=== PATIENT | female | born 1955 | race Caucasian/White ===

== ENCOUNTER → 2016-09-13 | Outpatient (CLI) | payer OTHER, MEDICARE | END | disposition home or self-care (01) | LOC: PCVCCLINIC 11:59 | PROVIDERS: ATTEND Internal Medicine | DX: I10 Essential (primary) hypertension (principal); I48.0 Paroxysmal atrial fibrillation; E78.5 Hyperlipidemia, unspecified; I63.432 Cerebral infarction due to embolism of left posterior cerebral artery; Z86.718 Personal history of other venous thrombosis and embolism; Z79.899 Other long term (current) drug therapy; Z87.891 Personal history of nicotine dependence | CPT/HCPCS: 93005; G0463 ==

== ENCOUNTER → 2017-03-18 | Outpatient (CLI) | payer OTHER, MEDICARE | END | disposition home or self-care (01) | LOC: PCVCCLINIC 11:32 | PROVIDERS: ATTEND Internal Medicine | DX: I48.0 Paroxysmal atrial fibrillation (principal); R06.02 Shortness of breath; I63.432 Cerebral infarction due to embolism of left posterior cerebral artery; E78.5 Hyperlipidemia, unspecified; Z87.891 Personal history of nicotine dependence; Z79.899 Other long term (current) drug therapy | CPT/HCPCS: 80061; 93005; G0463 ==

== ENCOUNTER → 2017-09-19 | Outpatient (CLI) | payer OTHER, MEDICARE | END | disposition home or self-care (01) | LOC: PCVCCLINIC 14:11 | DX: I48.0 Paroxysmal atrial fibrillation (principal); I63.432 Cerebral infarction due to embolism of left posterior cerebral artery; E78.5 Hyperlipidemia, unspecified; I51.81 Takotsubo syndrome; F17.201 Nicotine dependence, unspecified, in remission; Z86.718 Personal history of other venous thrombosis and embolism; Z79.01 Long term (current) use of anticoagulants; Z88.8 Allergy status to other drugs, medicaments and biological substances | CPT/HCPCS: 93005; G0463 ==

== ENCOUNTER → 2018-04-17 | Outpatient (CLI) | payer MEDICARE ==
--- NOTE | 2018-04-17 12:04 | PCVCIMAG ---
APPROVED REPORT Study performed: 04/17/2018 10:17:33 EXAM: Comprehensive 2D, Doppler, and color-flow Echocardiogram Patient Location: Echo lab Room #: 2Status: routine BSA: 1.87 HR: 81 bpmBP: 162/100 mmHg Rhythm: NSR Other Information Study Quality: Good Risk Factors: Cardiac Risk Factors: HTN Indications Atrial Fibrillation Hypertension/HDD Hx DVT, CVA 2D Dimensions IVSd: 8.80 (7-11mm)LVOT Diam: 21.50 (18-24mm) LVDd: 55.38 mm PWd: 7.46 (7-11mm)Ascending Ao: 31.24 (22-36mm) LVDs: 42.95 (25-40mm) Left Atrium: 39.78 (27-40mm) Aortic Root: 19.96 mm LV Single Plane 4CH: 42.36 % LV Single Plane 2CH: 54.76 % Biplane EF: 50.0 % Volumes Left Atrial Volume (Systole) Single Plane 4CH: 76.13 mLSingle Plane 2CH: 77.04 mL Biplane LA Volume: 82.00 mLLA ESV Index: 44.00 mL/m2 Aortic Valve AoV Peak Prieto.: 1.51 m/s AO Peak Gr.: 9.12 mmHgLVOT Max P.44 mmHg LVOT Max V: 0.78 m/s AMANDA Vmax: 1.87 cm2 AI Vmax: 3.92 m/s AI [place]: 3.42 m/s2 AI PHT: 332.58 ms Mitral Valve E/A Ratio: 0.9 MV Decel. Time: 126.58 ms MV E Max Prieto.: 0.76 m/s MV A Prieto.: 0.82 m/s IVRT: 110.73 ms TDI E/Lateral E': 6.91E/Medial E': 8.44 Medial E' Prieto.: 0.09 m/s Lateral E' Prieto.: 0.11 m/s Pulmonary Valve PV Peak Prieto.: 0.92 m/sPV Peak Gr.: 3.41 mmHg Pulmonary Vein P Vein S: 0.65 m/sP Vein A: 0.23 m/s P Vein D: 0.50 m/sP Vein A Dur.: 76.1 msec P Vein S/D Ratio: 1.30 Tricuspid Valve TR Peak Prieto.: 2.54 m/s TR Peak Gr.: 25.81 mmHg TV Vmax: 0.57 m/sPA Pressure: 33.00 mmHg Left Ventricle The left ventricle is normal size. There is normal LV segmental wall motion. There is normal left ventricular wall thickness. Left ventricular systolic function is normal. The left ventricular ejection fraction is within the normal range. LVEF is 50%. The left ventricular diastolic function is normal. Right Ventricle The right ventricle is normal size. The right ventricular systolic function is normal. Atria Left atrium is dilated. The right atrium size is normal. Aortic Valve Aortic valve is trileaflet. The aortic valve is normal in structure and function. No aortic regurgitation is present. There is no aortic valvular stenosis. Mitral Valve The mitral valve is normal in structure. Mild-moderate insufficiency No evidence of mitral valve stenosis. Tricuspid Valve The tricuspid valve is normal in structure. Mild to moderate tricuspid regurgitation. Pulmonic Valve The pulmonary valve is normal in structure. There is no pulmonic valvular regurgitation. Great Vessels The aortic root is normal in size. The ascending aorta is normal in size. Aortic arch is not well visualized. IVC is normal in size and collapses >50% with inspiration. Pericardium There is no pericardial effusion. There is no pleural effusion. <Conclusion> Left ventricular systolic function is normal. There is normal LV segmental wall motion. LVEF 50%. Left atrium is dilated Aortic valve is trileaflet. No aortic regurgitation or stenosis The mitral valve is normal in structure. Mild-moderate insufficiency Pulmonary artery pressure of 30mmHg There is no pericardial effusion.
== END | disposition home or self-care (01) ==
LOC: PCVCIMAG 10:13
PROVIDERS: ATTEND Internal Medicine
DX: I48.0 Paroxysmal atrial fibrillation (principal); I63.432 Cerebral infarction due to embolism of left posterior cerebral artery; E78.5 Hyperlipidemia, unspecified; I51.81 Takotsubo syndrome; F17.201 Nicotine dependence, unspecified, in remission; J45.909 Unspecified asthma, uncomplicated; Z86.718 Personal history of other venous thrombosis and embolism; Z79.01 Long term (current) use of anticoagulants; Z79.899 Other long term (current) drug therapy
CPT/HCPCS: 36415; 80061; 93005; 93306; G0463

== ENCOUNTER → 2018-10-30 | Outpatient (CLI) | payer MEDICARE | END | disposition home or self-care (01) | LOC: PCVCCLINIC 10:00 | PROVIDERS: ATTEND Internal Medicine | DX: I48.0 Paroxysmal atrial fibrillation (principal); I63.432 Cerebral infarction due to embolism of left posterior cerebral artery; E78.5 Hyperlipidemia, unspecified; I51.81 Takotsubo syndrome; F17.201 Nicotine dependence, unspecified, in remission; Z79.01 Long term (current) use of anticoagulants; Z86.718 Personal history of other venous thrombosis and embolism; Z88.6 Allergy status to analgesic agent; Z88.0 Allergy status to penicillin; Z88.1 Allergy status to other antibiotic agents | CPT/HCPCS: 36415; 80061; 93005; G0463 ==